=== PATIENT | female | born 1990 | race Caucasian/White ===

== ENCOUNTER 2020-10-23 12:43 | Emergency (ER) | payer OTHER ==
[2020-10-23 14:29] LABS: HEMOGLOBIN 13.2 gm/dl (12.3-15.3); RED BLOOD COUNT 5.05 M/UL (4.00-5.10); WHITE BLOOD COUNT 7.3 K/UL (4.5-11.0)
[2020-10-23 14:52] LABS: BUN/CREATININE RATIO 9 (0-10)
[2020-10-23] MEDS ORDERED: ZOFRAN4 MG PO (16:01)
[2020-10-23] MEDS ORDERED: IBUPROFEN600 MG PO (16:01)
== END 2020-10-23 16:52 | disposition home or self-care (01) ==
LOC: ER1 12:43
PROVIDERS: Physician Assistant Medical
DX: G43.909 Migraine, unspecified, not intractable, without status migrainosus (principal); Z20.822 Contact with and (suspected) exposure to COVID-19; Z88.1 Allergy status to other antibiotic agents; Z91.040 Latex allergy status
CPT/HCPCS: 80053; 85025; 96374; 96375; 99284; J1200; J1885; J2765; J7030; U0002

== ENCOUNTER → 2020-11-26 | Outpatient (CLI) | payer OTHER ==
[~2020-11-26] MED LIST: IBUPROFEN600 MG PO; ZOFRAN4 MG PO
== END ==
LOC: MRI 14:40
DX: G43.709 Chronic migraine without aura, not intractable, without status migrainosus (principal)
CPT/HCPCS: 70553; A9577

== ENCOUNTER 2021-03-26 23:13 | Emergency (ER) | payer OTHER | END 2021-03-27 02:47 | disposition home or self-care (01) | LOC: ER1 23:13 | DX: U07.1 COVID-19 (principal); Z88.1 Allergy status to other antibiotic agents | CPT/HCPCS: 71045; 99284; U0002 ==